=== PATIENT | female | born 1975 | race American Indian/Alaskan Native ===

== ENCOUNTER 2016-12-09 10:36 | Outpatient (CLI) | payer MEDICAID ==
--- NOTE | 2016-12-09 13:44 | Fluoroscopy Report ---
FLUORO GUIDED HSG INDICATION: Infertility. COMPARISON: None similar at this institution. FINDINGS: Hysterosalpingogram performed with cervix cannulated using standard sterile precautions. Preliminary radiograph demonstrates few small pelvic phleboliths. Innumerable bilateral gluteal nodular soft tissue densities, nonspecific. Injection of 11 cc of Omnipaque-300 under fluoroscopy demonstrates normal uterine cavity/contours. Prompt opacification of normal caliber left fallopian tubes with free intraperitoneal spill noted. Trace contrast may be visualized within poorly opacified right fallopian tube proximally, though remainder length not seen. CONCLUSION: Occluded right fallopian tube with a normal uterus and patent left fallopian tube, as described. Thank you for the opportunity to participate in this patient's care.
== END 2016-12-09 10:37 | disposition home or self-care (01) ==
LOC: FLUORO 10:36
PROVIDERS: ATTEND Obstetrics & Gynecology
DX: N97.1 Female infertility of tubal origin (principal)
CPT/HCPCS: 58340; 74740; Q9967